=== PATIENT | female | born 1950 | race Two or more races ===

== ENCOUNTER 2021-12-18 05:50 | Day surgery (SDC) | payer OTHER ==
[2021-12-18] MEDS ORDERED: COLACE100 MG PO (10:21)
[2021-12-18] MEDS ORDERED: PERCOCET 5-3251 EACH PO (10:21)
== END 2021-12-18 11:30 | disposition home or self-care (01) ==
LOC: CIR.AMB 05:50
PROVIDERS: ATTEND Surgery
DX: K64.8 Other hemorrhoids (principal); Z20.822 Contact with and (suspected) exposure to COVID-19; K62.89 Other specified diseases of anus and rectum; K59.09 Other constipation; I10 Essential (primary) hypertension; E03.9 Hypothyroidism, unspecified; E66.9 Obesity, unspecified